=== PATIENT | male | born 1965 | race Caucasian/White ===

== ENCOUNTER → 2016-10-25 | Outpatient (CLI) | payer BC ==
--- NOTE | ~2016-10-25 | CT55 ---
[facility] A Service of [facility] RADIOLOGY TEXT RESULTS PATIENT: CORY CORMIER LOCATION: [facility] : 65 UNIT #: [id number] AGE: [address]: Ariadne Rodrigues MD SEX: M ORDER DR: [id number] [facility] [address] [facility] [place], [place] [address] [id number] O MR#: [id number] Acc #: [id number] NAME: CORY CORMIER : 1965 SEX: M STUDY DATE/TIME: 10/25/2016 15:54 UNIT: [facility] ROOM: STUDY DESCRIPTION: CT Chest W Con Attending Physician: Ariadne Rodrigues M.D. Referring Physician: Ariadne Rodrigues M.D. Ordering Physician: Ariadne Rodrigues M.D. Primary Care Physician: Roseanna Tipton M.D. MEDICAL IMAGING REPORT This report is preliminary unless electronic signature is present EXAM Chest CT with contrast, 10/25/2016. HISTORY Short of air, cough, weight loss for 3-4 months. No history of malignancy or prior chest surgery. TECHNIQUE Contrast-enhanced chest CT was performed. This CT exam was performed with one or more of the following radiation dose reduction techniques: automatic exposure control, adjustment of mA and/or kV according to patient size, and iterative reconstruction. COMPARISON STUDIES No comparisons. FINDINGS CT CHEST: The lungs are clear. No effusion. No suspicious nodule. Included thyroid unremarkable. No pericardial effusion, mediastinal or axillary adenopathy. Aorta demonstrates atherosclerotic change. No aneurysm or dissection. Included upper abdomen is negative. Incidental mild asymmetric atrophy of the left kidney. This is nonspecific, but may reflect prior inflammatory, infectious or ischemic insults. Degenerative changes in the thoracolumbar spine. IMPRESSION 1. Essentially negative CT chest. Lungs clear. No suspicious nodule. 2. No adenopathy. 3. Upper abdomen demonstrates incidental asymmetric atrophy of the left [facility] A Service of [facility] RADIOLOGY TEXT RESULTS PATIENT: CORY CORMIER LOCATION: [facility] : 65 UNIT #: [id number] AGE: [address]: Ariande Rodrigues MD SEX: M ORDER DR: kidney, a nonspecific finding. Dictated by... Liban Centeno M.D. THIS IS AN ELECTRONICALLY VERIFIED REPORT Liban Centeno M.D. at 10/26/2016 2:24 PM COMPA/[email or web address] TD: 10/26/2016 14:03 JOB #: [id number] MEDICAL IMAGING REPORT COPY
[2016-10-25 16:36] LABS: POC - CREATININE 1.39 mg/dL (0.64-1.27)
== END | disposition home or self-care (01) ==
LOC: CCAT 15:06
PROVIDERS: Internal Medicine Hematology
DX: D72.829 Elevated white blood cell count, unspecified (principal)
CPT/HCPCS: 71260; 82565; Q9967